=== PATIENT | male | born 1985 | race Two or more races ===

== ENCOUNTER 2021-06-18 09:11 | Emergency (ER) | payer OTHER ==
[~2021-06-18] VITALS: Ht 167.6 cm; Wt 72.6 kg
[2021-06-18] MEDS ORDERED: LEVSIN/SL0.125 MG PO (15:46)
[2021-06-18] MEDS ORDERED: INTESTINEX680 M1 PO (15:46)
[2021-06-18] MEDS ORDERED: ONDANSETRON ODT4 MG PO (15:46)
[2021-06-18] MEDS ORDERED: PEPCID AC20 MG PO (15:46)
== END 2021-06-18 16:50 ==
LOC: ER 09:11
DX: K29.70 Gastritis, unspecified, without bleeding (principal); E86.0 Dehydration; R79.89 Other specified abnormal findings of blood chemistry; K76.0 Fatty (change of) liver, not elsewhere classified; Z03.818 Encounter for observation for suspected exposure to other biological agents ruled out